=== PATIENT | male | born 1985 | race Caucasian/White ===

== ENCOUNTER 2019-10-29 17:16 | Emergency (ER) | payer OTHER, SELFPAY ==
[2019-10-29] VITALS (10 sets, daily range): BP systolic 118–126; BP diastolic 60–83; PULSE 70–93; RESP 12–21; TEMP 36.6–36.9; O2SAT 97–100
--- NOTE | 2019-10-29 17:15 | DI.RAD_ITS ---
EXAM: XR KNEE LT 2V AP,LAT CLINICAL HISTORY: pain TECHNIQUE: COMPARISON: No exams were available for comparison FINDINGS: Two views were obtained. Please note that this does not constitute a full trauma series. No fractur e seen. IMPRESSION:
--- NOTE | 2019-10-29 17:15 | DI.RAD_ITS ---
EXAM: XR KNEE RT 2V AP,LAT CLINICAL HISTORY: pain TECHNIQUE: COMPARISON: CR,XR XR KNEE LT 2V AP,LAT from 10/29/2019 FINDINGS: Two views were obtained. Please note that this does not constitute a full fracture series. No fract ure is seen. IMPRESSION:
--- NOTE | 2019-10-29 17:15 | RT.EKG_ITS ---
APPROVED REPORT Exam: Resting ECG Patient Location: E HR:76 bpm ECG Measurements Heart Rate 76 AXIS UT 145 P 56 QRSd 126 QRS 67 QT 394 T 27 QTc 444 <Conclusion> Sinus, rate 76 Right bundle branch block. no st elevation
--- NOTE | 2019-10-29 17:15 | DI.CT_ITS ---
EXAM: CT HEAD CERVICAL SPINE WO COMPARISON: No exams were available for comparison FINDINGS: CT examination of the cervical spine was performed without contrast administration. There is no evide nce of acute cervical spine fracture or dislocation. Tracheolaryngeal structures appear intact. No c ervical mass seen. Mild prominence of cervical lymph nodes bilaterally, the largest measuring about 14 millimeters in diameter.. Intervertebral disc spaces are well maintained. Noncontrast cranial CT was performed. Ventricular system is normal in appearance. No evidence of acut e intracranial hemorrhage, mass effect, or midline shift. No calvarial fracture. The orbital and temp oral bone structures appear intact. IMPRESSION: No evidence of acute cervical spine injury. No evidence of acute intracranial injury. Incidental RADIATION DOSE DELIVERED: 1,580mGy.cm Total DLP DATA REPOSITORY: All CT scans at this facility are submitted to the National Radiology Data Registry (NRDR) Dose Index Registry (DIR) with the [employer] ([employer]). RADIATION OPTIMIZATION: All CT scans at this facility use at least one of these dose optimization te chniques: automated exposure control; mA and/or kV adjustment per patient size (includes targeted exa ms where dose is matched to clinical indication); or iterative reconstruction.
--- NOTE | 2019-10-29 17:15 | DI.CT_ITS ---
EXAM: CT CHEST/ABD/PEL W TECHNIQUE: CT examination of the chest, abdomen, and pelvis was performed with bolus infusion of 100 cc of Omnipaque 350. COMPARISON: No exams were available for comparison FINDINGS: There is no evidence of a thoracic vascular injury. There is small area of ground-glass opacity in the medial right lung apex, question unsuspected pneum onia, pulmonary contusion not excluded. No pneumothorax or pleural effusion. No mediastinal hematoma . No adenopathy in the chest. Tracheobronchial tree appears intact. The liver, spleen, and pancreas appear normal. Gallbladder and bile ducts are normal. Adrenals and kidneys are unremarkable except for a tiny presumed left renal cyst.. No evidence of ur inary tract injury or obstruction. No abdominal or pelvic vascular injury seen. No abdominal or pelvic adenopathy. No significant abdomi nal wall hernia or hematoma. No evidence of bowel injury. IMPRESSION: Question right apical medial pulmonary infiltrate versus contusion, please correlate clinically. Fol low-up CT may be obtained if clinically indicated. No other significant evidence of injury. RADIATION DOSE DELIVERED: 1,157.68mGy.cm Total DLP DATA REPOSITORY: All CT scans at this facility are submitted to the National Radiology Data Registry (NRDR) Dose Index Registry (DIR) with the [employer] (ACR). RADIATION OPTIMIZATION: All CT scans at this facility use at least one of these dose optimization te chniques: automated exposure control; mA and/or kV adjustment per patient size (includes targeted exa ms where dose is matched to clinical indication); or iterative reconstruction.
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
[2019-10-29] MEDS: Lactated Ringers 1,000 ML 1000 ML IV (17:58)
[2019-10-29] MEDS: Ketorolac 15 MG/ML VIAL IVP (17:59)
[2019-10-29 18:07] LABS: Abs Immature Grans 0.11 10^3/uL (0.0-0.06); Absolute Basophil Count 0.04 10^3/uL (0.0-0.2); Absolute Lymphocyte Count 1.38 10^3/uL (1.2-3.4); Absolute Neutrophil Count 11.41 10^3/uL (1.2-6.7); Basophils % 0.3; Eosinophils % 0.1; HCT 46.9 % (40.0-50.0); HGB 15.8 g/dL (13.5-17.5); Immature Grans % 0.8; Lymphocytes % 10.1; MCH 30.6 pg (27.0-33.0); MCHC 33.7 % (32.0-36.0); MCV 90.9 fL (80-95); MPV 8.5 fL (8.0-11.0); Monocytes % 5.3; Neutrophils % 83.4; Platelet Count 247 10^3/uL (130-400); RBC 5.16 10^6/uL (4.36-5.78); RDW 12.6 % (11.8-14.1); RDW-SD 41.5 fL; WBC 13.68 10^3/uL (4.4-10.8)
[2019-10-29 18:08] LABS: Absolute Eosinophil Count 0.01 10^3/uL (0.0-0.7); Absolute Monocyte Count 0.73 10^3/uL (0.1-0.8)
[2019-10-29] MEDS: Omnipaque 350 MG/ML 100 ML BTL IJ (18:10)
[2019-10-29] MEDS: Normal Saline - Diluent 50 ML VIAL IV (18:14)
[2019-10-29] MEDS: Normal Saline Flush 10 ML SYR IVP (18:15)
[2019-10-29 18:28] LABS: ALT 66 U/L (16-63); AST 38 U/L (15-37); Alkaline Phosphatase 75 U/L (46-116); Anion Gap 7.8 mmol/L (3-11); BUN 22 mg/dL (7-18); Bilirubin, Total 0.4 mg/dL (0.2-1.0); CO2 28.2 mmol/L (21.0-32.0); CREATININE 1.27 mg/dL (0.70-1.30); Calcium 8.8 mg/dL (8.5-10.1); Chloride 102 mmol/L (98-107); Glucose 90 mg/dL (74-106); Magnesium 1.9 mg/dL (1.8-2.4); Potassium 3.6 mmol/L (3.5-5.1); Sodium 138 mmol/L (136-145); Total Protein 7.2 g/dL (6.4-8.2)
[2019-10-29] MEDS: Lidocaine 2% Jelly 6 ML SYR TP (18:30)
[2019-10-29 18:34] LABS: Troponin I < 0.05 ng/mL (<0.06)
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
--- NOTE | 2019-10-29 18:43 | DI.VRAD_ITS ---
PROCEDURE INFORMATION: Exam: XR Left Knee Exam date and time: 10/29/2019 6:28 PM Age: 34 years old Clinical indication: Pain; Knee; Left TECHNIQUE: Imaging protocol: XR Left knee. Views: 1 or 2 views. COMPARISON: No relevant prior studies available. FINDINGS: Bones/joints: A tiny joint effusion is seen in the left suprapatellar pouch. The soft tissues otherwise normal. No acute fractures in the left knee. Soft tissues: See Bones/joints finding. IMPRESSION: 1. A tiny joint effusion is seen in the left suprapatellar pouch. The soft tissues otherwise normal. 2. No acute fractures in the left knee. Dictated and Authenticated by: Deangelo Paez MD. Ordering:ANNALISE Page MD
--- NOTE | 2019-10-29 19:05 | DI.VRAD_ITS ---
PROCEDURE INFORMATION: Exam: XR Right Knee Exam date and time: 10/29/2019 6:29 PM Age: 34 years old Clinical indication: Pain; Knee; Right TECHNIQUE: Imaging protocol: XR Right knee. Views: 3 views. COMPARISON: No relevant prior studies available. FINDINGS: Bones/joints: A tiny joint effusion is present in the right suprapatellar pouch. No bony abnormality or acute fracture is identified in the right knee. Soft tissues: Normal. IMPRESSION: 1. A tiny joint effusion is present in the right suprapatellar pouch. 2. No bony abnormality or acute fracture identified in the right knee. Dictated and Authenticated by: Deangelo Paez MD. Ordering:ANNALISE Page MD
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
[2019-10-29] MEDS: Cephalexin 500 MG CAP, 2 CAPS/BTL PO (19:36)
--- NOTE | 2019-10-29 19:58 | NUR.NOTE ---
mepilex and coban to nyla knee wounds. IV removed. Discharge instructions reviewed with verbal understanding. ambulated to exit with steady gait.
== END 2019-10-29 19:55 | disposition home or self-care (01) ==
PROVIDERS: Emergency Provider Emergency Medicine
DX: S01.512A Laceration without foreign body of oral cavity, initial encounter (principal); S80.211A Abrasion, right knee, initial encounter; S80.212A Abrasion, left knee, initial encounter; S27.321A Contusion of lung, unilateral, initial encounter; V20.0XXA Motorcycle driver injured in collision with pedestrian or animal in nontraffic accident, initial encounter
CPT/HCPCS: 36415; 74177; 80053; 90471; 93005; 96361; 96374; 99285; 70450; 71260; 72125; 73560; 83735; 84484; 85025; 93010; J1885; J3490